=== PATIENT | male | born 1960 | race Caucasian/White ===

== ENCOUNTER 2017-03-30 08:48 | Emergency (ER) | payer MEDICARE, BC ==
[2017-03-30 09:18] VITALS: BP 166/87
[2017-03-30] MEDS ORDERED: cefTRIAXone 2 GM, Lidocaine 1% 4.2 ML IM ONE ×2 (09:35)
--- NOTE | 2017-03-30 09:38 | EDM.PDOC ---
[id number]: CELLUTITS Time Seen by Provider: 03/30/17 09:10 Source of Information: Reports: Patient, RN Notes Reviewed History Limitations: Reports: No Limitations - History of Present Illness INITIAL COMMENTS - FREE TEXT/NARRATIVE: Patient states left medial thigh started turning warm and red night. He had previous episode of cellulitis on right thigh about six months ago treated with oral antibiotics. Onset: Gradual Onset Date: 03/28/17 Onset Time: 22:00 Duration: Day(s):, Getting Worse Location: Reports: Lower Extremity, Left Front/Back Body Image: 1 - red warm swollen with small follicles reddened but no areas of fluctuance noted Quality: Reports: Ache, Same as Previous Episode Severity: Mild Improves with: Reports: None Worsens with: Reports: None Associated Symptoms: Reports: No Other Symptoms. 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 Denies: Fever, Chills, Malaise, Weakness , Fatigue, Diaphoresis, Weight Gain HEENT: Reports: No Symptoms Respiratory: Denies: Shortness of Breath, Wheezing, Pleuritic Chest Pain, Cough , Sputum Cardiovascular: Denies: Chest Pain, Claudication, Dyspnea on Exertion, Edema, Orthopnea, Palpitations, Syncope Endocrine: Reports: No Symptoms GI/Abdominal: Reports: No Symptoms. Denies: Abdominal Pain, Black Stool, Bloody Stool, Constipation, Diarrhea, Distension, Nausea : Reports: No Symptoms. Denies: Dysuria, Frequency, Hematuria Musculoskeletal: Reports: No Symptoms. Denies: Neck Pain, Shoulder Pain, Arm Pain, Back Pain Skin: Reports: No Symptoms, Other (large area of cellulitis and folliculitis on left medial, anterior and lateral thigh, 26 by 21 cm approx. edges marked, no areas of fluctuance or large wounds amenable to drainage) Neurological: Reports: No Symptoms. Denies: Confusion, Dizziness, Headache Psychiatric: Reports: No Symptoms Hematologic/Lymphatic: Reports: No Symptoms. Denies: Easy Bleeding, Easy Bruising Immunologic: Reports: No Symptoms ED EXAM, SKIN/RASH Exam: See Below Exam Limited By: No Limitations General Appearance: Alert, WD/WN, No Apparent Distress Eye Exam: Bilateral Eye: PERRL Ears: Normal External Exam Nose: Normal Inspection Throat/Mouth: Normal Inspection, Normal Oropharynx Head: Atraumatic, Normocephalic Neck: Normal Inspection Respiratory/Chest: No Respiratory Distress, Lungs Clear, Normal Breath Sounds, No Accessory Muscle Use, Chest Non-Tender. No: Respiratory Distress, Crackles, Rales, Rhonchi Cardiovascular: Systolic Murmur, Extra Beats, Other (early systolic murmer with fixed split S2, mostly regular with occasional early beats, appear to be PAC or PVC on monitor) Peripheral Pulses: 1+: Dorsalis Pedis (L), Dorsalis Pedis (R), 3+: Radial (L), Radial (R) GI/Abdominal: Normal Bowel Sounds, Soft, Non-Tender, Other (large abdomen due to obesity). No: No Mass, Guarding, Rebound, Tender (Male) Exam: Deferred Rectal (Males) Exam: Deferred Back Exam: Normal Inspection, Full Range of Motion Extremities: Increased Warmth, Redness, Other (right lower extremity normal exam , left lower extremity has 21 by 26 area of cellulits and folliculitis on medial posterior and anterior thigh, area marked with skin marker). No: [place]' s Sign Neurological: Alert, Oriented, CN II-XII Intact Psychiatric: Normal Affect, Normal Mood Skin: Warm, Dry, Intact, Increased Warmth, Other (see above) Location, Skin: Lower Extremity, Left Characteristics: Macular, Maculopapular, Patchy, Erythematous Associated features: Warmth, Tenderness, Induration, Rough Lymphatic: No Adenopathy Front/Back Body Diagram: 1 - red warm swollen EKG INTERPRETATION EKG Date: 03/30/17 Time: 10:42 Rhythm: NSR (SR with occasional supraventricular beats, rhythm mostly regular with RAD and widespread t wave changes, no previous EKG available to compare this to.) [place]: RAD-Right [place] Deviation P-Wave: Present QRS: RBBB ST-T: Depressed QT: Normal Comparison: NA - No Prior EKG EKG Interpretation Comments: EKG done due to irregular pulse and murmer which patient was unaware of. He has no symptoms of shortness of breath or chest pain at the ER visit. Course - Vital Signs Last Recorded V/S: Last Vital Signs Temp 35.7 C 03/30/17 08:55 Pulse 91 03/30/17 08:55 Resp 20 03/30/17 08:55 BP 166/87 H 03/30/17 08:55 Pulse Ox - Orders/Labs/Meds Orders: Active Orders 24 hr Category Date Time Status EKG 12 Lead [EKG Documentation Completion] [RC] STAT Care 03/30/17 09:33 Active Labs: Laboratory Tests 03/30/17 03/30/17 Range/Units 09:55 09:55 WBC 6.2 (4.0-10.0) x10^3/uL RBC 4.89 (4.5-6.0) x10^6/uL Hgb 16.3 (14.0-18.0) g/dL Hct 44.5 (40.0-52.0) % MCV 91.0 (78.0-93.0) fL MCH 33.3 H (26.0-32.0) pg MCHC 36.6 H (32.0-36.0) g/dL RDW Coeff of Sher 13.8 (10.0-15.0) % Plt Count 100 L (130-400) x10^3/uL Neut % (Auto) 65.6 (50.0-80.0) % Lymph % (Auto) 21.7 L (25.0-50.0) % [place] % (Auto) 10.9 (2.0-11.0) % Eos % (Auto) 1.6 (0.0-4.0) % Baso % (Auto) 0.2 (0.2-1.2) % Sodium 139 (136-145) mmol/L Potassium 4.2 (3.5-5.1) mmol/L Chloride 106 (98-107) mmol/L Carbon Dioxide 26 (21-32) mmol/L BUN 12 (7-18) mg/dL Creatinine 1.0 (0.70-1.30) mg/dL Est Cr Clr Drug Dosing 89.46 mL/min Estimated GFR (MDRD) > 60 Glucose 99 (74-106) mg/dL Calcium 8.3 L (8.5-10.1) mg/dL Corrected Calcium 9.10 (8.5-10.1) mg/dL Total Bilirubin 1.7 H (0.2-1.0) mg/dL AST 29 (15-37) U/L ALT 21 (16-63) U/L Alkaline Phosphatase 102 (46-116) U/L Creatine Kinase 94 (39-308) U/L Creatine Kinase Index 1.3 (0.0-4.0) % CK-MB (CK-2) 1.2 (0.0-3.6) ng/mL Troponin I 0.028 (<=0.056) ng/mL Total Protein 7.2 (6.4-8.2) g/dL Albumin 3.0 L (3.4-5.0) g/dL Globulin 4.2 Albumin/Globulin Ratio 0.71 Meds: Medications Discontinued Medications Generic Name Dose Route Start Last Admin Trade Name Freq PRN Reason Stop Dose Admin Ceftriaxone Sodium 2 gm/ 0 gm 03/30/17 09:35 03/30/17 10:09 Lidocaine HCl 4.2 ml IM 03/30/17 09:36 1 inj ONETIME ONE Administration - Re-Assessments/Exams Free Text/Narrative Re-Assessment/Exam: 03/30/17 11:03 EKG was done due to heart murmur and irregular pulse, not because patient was short of breath or had chest pain. Patient was completely asymptomatic from cardiac standpoint. There was no Previous EKG to compare to on [facility] EMR. I discussed case with and had Dr Flores look in their system and nothing was available for EKG . Labs were done and reviewed to make sure there were no other issues complicating the illness. No other acute issues noted. Patient advised to start Bactrim one twice daily for ten days starting today and if cellulitis not better tomorrow to come back for another dose of Rocephin. Also strongly advised to return to ER at once if he develops chest pain, shortness of breath or abdominal or back pain or nausea and vomiting or any other new symptoms. He is advised to see Dr Quintana for ER follow up on Saturday or Saturday and to reView EKG and heart murmur. Patient voiced understanding. Departure - Departure Time of Disposition: 10:53 Disposition: Home, Self-Care 01 Condition: Good Clinical Impression: Cellulitis Qualifiers: Site of cellulitis: extremity Site of cellulitis of extremity: lower extremity Laterality: left Qualified Code(s): L03.116 - Cellulitis of left lower limb - Discharge Information Instructions: Cellulitis, Adult Referrals: Anabel Quintana MD [Primary Care Provider] - Forms: ED Department Discharge Additional Instructions: If the leg is not improved by tomorrow, or if it goes outside the lines, come back for another dose of antibiotics IM. Take your oral antibiotic as directed. Return to ER at once if you develop fever, rapidly spreading rash, chest pain, shortness of breath, nausea, vomiting or any other new symptoms. Follow up with DR Quintana in clinic on Saturday or Saturday to review your EKG, Listen to your heart and check the rash on your leg. - My Orders Last 24 Hours: My Active Orders 03/30/17 09:33 EKG 12 Lead [EKG Documentation Completion] [RC] STAT - Assessment/Plan Last 24 Hours: My Active Orders 03/30/17 09:33 EKG 12 Lead [EKG Documentation Completion] [RC] STAT
[2017-03-30 10:34] LABS: CHLORIDE,CL 106 mmol/L (98-107); SODIUM,NA 139 mmol/L (136-145)
== END 2017-03-30 11:06 | disposition home or self-care (01) ==
LOC: VM.ED 08:48
DX: L03.116 Cellulitis of left lower limb (principal); Z79.899 Other long term (current) drug therapy
CPT/HCPCS: 36415; 80053; 82550; 82553; 84484; 85025; 93005; 96372; 99283; J0696

== ENCOUNTER 2017-10-19 08:57 | Emergency (ER) | payer MEDICARE, BC ==
--- NOTE | 2017-10-19 09:42 | EDM.PDOC ---
ED HPI GENERAL MEDICAL PROBLEM - General Chief Complaint: Fever Stated Complaint: FLU SYMPTOMS Time Seen by Provider: 10/19/17 09:20 Source of Information: Reports: Patient History Limitations: Reports: No Limitations - History of Present Illness INITIAL COMMENTS - FREE TEXT/NARRATIVE: Patient comes in with a long week history of coughing and low-grade fever sputum production inability to lay flat body aches. Patient states this all started on Saturday and slowly is progressively getting worse. States that he has not had any chest pain and is not short of breath however states that his tufted start taking deep breaths currently. He has become short of breath with exercise. Patient denies any nausea vomiting dizziness lightheadedness Onset: Gradual Quality: Reports: Ache Severity: Moderate Improves with: Reports: Immobilization, Rest - Related Data Allergies Allergy/AdvReac Type Severity Reaction Status Date / Time No Known Allergies Allergy Verified 03/30/17 09:13 Home Meds: Home Meds LORazepam [LORazepam] 0.5 mg PO QID PRN 03/30/17 [History] Lisinopril [Prinivil] 30 mg DAILY 03/30/17 [History] Azithromycin [IMW: Azithromycin] 500 mg PO DAILY 5 Days #5 tab 10/19/17 [Rx] Fluticasone Propionate [Flonase] 1 spray NS BID 10/19/17 [History] Furosemide [Lasix] 40 mg PO DAILY 10/19/17 [History] Loratadine [Claritin] 10 mg PO DAILY PRN 10/19/17 [History] Metoprolol Succinate [Toprol Xl] 12.5 mg PO DAILY 10/19/17 [History] Ranitidine HCl [Zantac] 150 mg PO DAILY 10/19/17 [History] rOPINIRole HCl [Requip] 0.5 mg PO BEDTIME 10/19/17 [History] traMADol HCl [Tramadol HCl] 50 tab PO Q4H PRN 10/19/17 [History] Past Medical History Cardiovascular History: Reports: Hypertension Gastrointestinal History: Reports: Other (See Below) (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) Psychiatric History: Reports: Anxiety Dermatologic History: Reports: Cellulitis - Infectious Disease History Other Infectious Disease History: Leg cellulitis - Past Surgical History Musculoskeletal Surgical History: Reports: Hip Replacement (right hip replacement about 2006 per pt) Social & Family History - Tobacco Use Smoking Status *Q: Never Smoker - Recreational Drug Use Recreational Drug Use: No ED ROS GENERAL - Review of Systems Review Of Systems: See Below Constitutional: Reports: Fever, Chills, Malaise, Fatigue, Night Sweats, Decreased Appetite HEENT: Reports: No Symptoms Respiratory: Reports: Shortness of Breath, Wheezing, Cough, Sputum Cardiovascular: Reports: No Symptoms Endocrine: Reports: No Symptoms GI/Abdominal: Reports: No Symptoms : Reports: No Symptoms Skin: Reports: No Symptoms ED EXAM, GENERAL - Physical Exam Exam: See Below Exam Limited By: No Limitations General Appearance: Alert, WD/WN, No Apparent Distress Respiratory/Chest: Decreased Breath Sounds, Crackles, Wheezing Cardiovascular: Normal Peripheral Pulses GI/Abdominal: Normal Bowel Sounds, Soft, Non-Tender, No Distention, No Abnormal Bruit, No Mass Course - Vital Signs Last Recorded V/S: Last Vital Signs Temp 36.1 C 10/19/17 09:05 Pulse 87 10/19/17 09:05 Resp 22 H 10/19/17 09:05 BP 142/83 H 10/19/17 09:05 Pulse Ox 90 L 10/19/17 09:05 - Orders/Labs/Meds Orders: Active Orders 24 hr Category Date Time Status Chest 2V [CR] Stat Exams 10/19/17 09:26 Taken Labs: Laboratory Tests 10/19/17 10/19/17 Range/Units 09:40 09:40 WBC 6.9 (4.0-10.0) x10^3/uL RBC 5.32 (4.5-6.0) x10^6/uL Hgb 17.6 (14.0-18.0) g/dL Hct 47.3 (40.0-52.0) % MCV 88.9 (78.0-93.0) fL MCH 33.1 H (26.0-32.0) pg MCHC 37.2 H (32.0-36.0) g/dL RDW Coeff of Sher 13.5 (10.0-15.0) % Plt Count 105 L (130-400) x10^3/uL Add Manual Diff Yes Neutrophils % (Manual) 84 H (50-80) % Band Neutrophils % 3 (0-6) % Lymphocytes % (Manual) 11 L (25-50) % Monocytes % (Manual) 2 (2-11) % Platelet Estimate Decreased L Sodium 134 L (136-145) mmol/L Potassium 3.3 L (3.5-5.1) mmol/L Chloride 97 L (98-107) mmol/L Carbon Dioxide 23 (21-32) mmol/L BUN 26 H (7-18) mg/dL Creatinine 1.7 H (0.70-1.30) mg/dL Est Cr Clr Drug Dosing 51.99 mL/min Estimated GFR (MDRD) 42 Glucose 127 H (74-106) mg/dL Calcium 9.1 (8.5-10.1) mg/dL Departure - Departure Time of Disposition: 10:31 Disposition: Home, Self-Care 01 Clinical Impression: Influenza A Pneumonia Qualifiers: Pneumonia type: due to unspecified organism Laterality: left Lung location: lower lobe of lung Qualified Code(s): J18.1 - Lobar pneumonia, unspecified organism - Discharge Information Prescriptions: Azithromycin [IMW: Azithromycin] 500 mg PO DAILY 5 Days #5 tab Instructions: Influenza, Adult, [id number], Pneumonia, , Pneumonia, Child Referrals: Anabel Quintana MD [Primary Care Provider] - Forms: ED Department Discharge Additional Instructions: Increase water intake Take, ibuprofen for any pain or fever Rest Follow up with PCP if not better in 7-10 days. Return to emergency department chest pain shortness of breath or fever increases - My Orders Last 24 Hours: My Active Orders 10/19/17 09:26 Chest 2V [CR] Stat - Assessment/Plan Last 24 Hours: My Active Orders 10/19/17 09:26 Chest 2V [CR] Stat
[2017-10-19 09:47] VITALS: BP 142/83
[2017-10-19] MEDS ORDERED: Lidocaine 1% PF 2 ML SDV INJECT ONE (10:32)
[2017-10-19] MEDS ORDERED: cefTRIAXone 1 GM Vial IM ONE (10:32)
== END 2017-10-19 11:05 | disposition home or self-care (01) ==
LOC: VM.ED 08:57
DX: J10.1 Influenza due to other identified influenza virus with other respiratory manifestations (principal); J18.9 Pneumonia, unspecified organism; I10 Essential (primary) hypertension; Z79.899 Other long term (current) drug therapy
CPT/HCPCS: 36415; 71046; 80048; 85025; 87804; 96372; 99283; J0696; J2001

== ENCOUNTER 2017-10-20 15:46 | Observation (INO) | payer MEDICARE, BC ==
[2017-10-20 16:54] LABS: CHLORIDE,CL 98 mmol/L (98-107); SODIUM,NA 134 mmol/L (136-145)
[2017-10-20] MEDS ORDERED: Sodium Chloride 0.9% 10 ML Syringe FLUSH PRN (16:56)
--- NOTE | 2017-10-20 17:21 | EDM.PDOC ---
ED HPI GENERAL MEDICAL PROBLEM - General Chief Complaint: General Stated Complaint: FLU Time Seen by Provider: 10/20/17 15:48 Source of Information: Reports: Patient, Family, RN, RN Notes Reviewed History Limitations: Reports: No Limitations - History of Present Illness INITIAL COMMENTS - FREE TEXT/NARRATIVE: Patient is brought to emergency room at [facility] with concerns of acute onset of confusion. The patient was seen in this emergency room yesterday for fever, chills, dry cough. The patient was diagnosed with influenza type A and pneumonia. The patient was given a prescription for azithromycin and discharged home. Earlier today, friends stopped by the patient's home to check on him when they noticed the acute confusion. They became very concerned and brought the patient back to the emergency room for further evaluation. Upon interviewing the patient, the patient was not aware where he was at. The patient is able to be somewhat reorientation. The patient was confused with his height and weight. The patient does remember being at the emergency room yesterday. The patient was disoriented to time. The patient seems to be somewhat dazed. The patient denies any chest pain. The patient does have a dry nonproductive cough. The patient denies any shortness of breath. The patient denies any abdominal pain. The patient denies any nausea vomiting or diarrhea. The patient denies any headaches. The patient denies any visual field disturbances. Onset: Today, Sudden - Related Data Allergies Allergy/AdvReac Type Severity Reaction Status Date / Time No Known Allergies Allergy Verified 10/20/17 16:03 Home Meds: Home Meds LORazepam [LORazepam] 0.5 mg PO QID PRN 03/30/17 [History] Lisinopril [Prinivil] 30 mg DAILY 03/30/17 [History] Azithromycin [IMW: Azithromycin] 500 mg PO DAILY 5 Days #5 tab 10/19/17 [Rx] Fluticasone Propionate [Flonase] 1 spray NS BID 10/19/17 [History] Furosemide [Lasix] 40 mg PO DAILY 10/19/17 [History] Loratadine [Claritin] 10 mg PO DAILY PRN 10/19/17 [History] Metoprolol Succinate [Toprol Xl] 12.5 mg PO DAILY 10/19/17 [History] Ranitidine HCl [Zantac] 150 mg PO DAILY 10/19/17 [History] rOPINIRole HCl [Requip] 0.5 mg PO BEDTIME 10/19/17 [History] traMADol HCl [Tramadol HCl] 50 - 100 mg PO Q4H PRN 10/19/17 [History] Past Medical History Cardiovascular History: Reports: Hypertension Gastrointestinal History: Reports: Other (See Below) Psychiatric History: Reports: Anxiety Dermatologic History: Reports: Cellulitis - Infectious Disease History Other Infectious Disease History: Leg cellulitis - Past Surgical History Musculoskeletal Surgical History: Reports: Hip Replacement Social & Family History - Tobacco Use Smoking Status *Q: Unknown Ever Smoked - Recreational Drug Use Recreational Drug Use: No ED ROS GENERAL - Review of Systems Review Of Systems: See Below Constitutional: Denies: Fever, Chills, Weakness HEENT: Reports: No Symptoms Respiratory: Reports: Cough. Denies: Shortness of Breath, Sputum Cardiovascular: Denies: Chest Pain, Palpitations GI/Abdominal: Denies: No Symptoms, Abdominal Pain, Nausea, Vomiting Skin: Reports: No Symptoms Neurological: Reports: Confusion. Denies: Dizziness, Headache ED EXAM, GENERAL - Physical Exam Exam: See Below Exam Limited By: No Limitations General Appearance: Alert, No Apparent Distress, Obese Eye Exam: Bilateral Eye: Normal Inspection, PERRL Head: Atraumatic, Normocephalic Neck: Supple Respiratory/Chest: No Respiratory Distress, Chest Non-Tender, Rhonchi ( scattered throughout) Cardiovascular: Tachycardia Peripheral Pulses: 2+: Radial (L), Radial (R) GI/Abdominal: Normal Bowel Sounds, Soft, Non-Tender Neurological: Alert, Confused, Disoriented Skin Exam: Warm, Dry, Intact, Normal Color, No Rash Course - Vital Signs Last Recorded V/S: Last Vital Signs Temp 36.4 C 10/20/17 15:46 Pulse 116 H 10/20/17 15:46 Resp 24 H 10/20/17 15:46 BP 154/101 H 10/20/17 15:46 Pulse Ox 98 10/20/17 15:46 - Orders/Labs/Meds Orders: Active Orders 24 hr Category Date Time Status Chest w Cont [CT] Stat Exams 10/20/17 17:16 Ordered Head wo Cont [CT] Stat Exams 10/20/17 17:11 Ordered Sodium Chloride 0.9% [Saline Flush] Med 10/20/17 16:56 Active 10 ml FLUSH ASDIRECTED PRN Saline Lock Insert [OM.PC] Routine Oth 10/20/17 16:56 Ordered Medication Orders Sodium Chloride (Saline Flush) 10 ml FLUSH ASDIRECTED PRN PRN Reason: Keep Vein Open Labs: Laboratory Tests 10/20/17 10/20/17 Range/Units 16:30 16:30 WBC 6.8 (4.0-10.0) x10^3/uL RBC 5.36 (4.5-6.0) x10^6/uL Hgb 17.8 (14.0-18.0) g/dL Hct 47.5 (40.0-52.0) % MCV 88.6 (78.0-93.0) fL MCH 33.2 H (26.0-32.0) pg MCHC 37.5 H (32.0-36.0) g/dL RDW Coeff of Sher 13.5 (10.0-15.0) % Plt Count 131 (130-400) x10^3/uL Neut % (Auto) 65.6 (50.0-80.0) % Lymph % (Auto) 16.6 L (25.0-50.0) % [place] % (Auto) 17.6 H (2.0-11.0) % Eos % (Auto) 0.1 (0.0-4.0) % Baso % (Auto) 0.1 L (0.2-1.2) % Sodium 134 L (136-145) mmol/L Potassium 3.2 L (3.5-5.1) mmol/L Chloride 98 (98-107) mmol/L Carbon Dioxide 19 L (21-32) mmol/L BUN 43 H (7-18) mg/dL Creatinine 1.6 H (0.70-1.30) mg/dL Est Cr Clr Drug Dosing TNP Estimated GFR (MDRD) 45 Glucose 118 H (74-106) mg/dL Calcium 9.2 (8.5-10.1) mg/dL Magnesium 1.8 (1.8-2.4) mg/dL Meds: Medications Generic Name Dose Route Start Last Admin Trade Name Freq PRN Reason Stop Dose Admin Sodium Chloride 10 ml 10/20/17 16:56 Saline Flush FLUSH ASDIRECTED PRN Keep Vein Open Departure - Departure Time of Disposition: 17:31 Disposition: Refer to Observation Condition: Good Clinical Impression: Acute confusion, Dehydration, Influenza A - Discharge Information - Problem List & Annotations (1) Influenza A SNOMED Code(s): 368394651 Code(s): J10.1 - FLU DUE TO OTH IDENT INFLUENZA VIRUS W OTH RESP MANIFEST Status: Acute Priority: Medium Current Visit: Yes Onset Date: ~10/19/17 (2) Acute confusion SNOMED Code(s): 757985967 Code(s): R41.0 - DISORIENTATION, UNSPECIFIED Status: Acute Priority: Medium Current Visit: Yes Onset Date: ~10/20/17 (3) Dehydration SNOMED Code(s): 73436612 Code(s): E86.0 - DEHYDRATION Status: Acute Priority: Medium Current Visit: Yes Onset Date: ~10/19/17 (4) Acute kidney injury (nontraumatic) SNOMED Code(s): 95104136 Code(s): N17.9 - ACUTE KIDNEY FAILURE, UNSPECIFIED Status: Acute Priority : Medium Current Visit: Yes Onset Date: ~10/20/17 - Problem List Review Problem List Initiated/Reviewed/Updated: Yes - My Orders Last 24 Hours: My Active Orders 10/20/17 16:56 Sodium Chloride 0.9% [Saline Flush] 10 ml FLUSH ASDIRECTED PRN Saline Lock Insert [OM.PC] Routine 10/20/17 17:11 Head wo Cont [CT] Stat 10/20/17 17:16 Chest w Cont [CT] Stat - Assessment/Plan Admission H&P: Please use this note as an admission H&P Last 24 Hours: My Active Orders 10/20/17 16:56 Sodium Chloride 0.9% [Saline Flush] 10 ml FLUSH ASDIRECTED PRN Saline Lock Insert [OM.PC] Routine 10/20/17 17:11 Head wo Cont [CT] Stat 10/20/17 17:16 Chest w Cont [CT] Stat Plan: Given the acute onset of confusion, will admit patient to observation.
[2017-10-20] MEDS ORDERED: Iopamidol 612 MG/ML 100 ML Bottle IVPUSH ONE (18:02)
[2017-10-20] MEDS ORDERED: Ondansetron 4 MG Tab.DIS PO PRN (18:19)
[2017-10-20] MEDS ORDERED: Acetaminophen 325 MG Tab PO PRN (18:19)
[2017-10-20] MEDS: Lactated Ringers 1,000 ML IV SCH (18:50)
[2017-10-20] MEDS: Oseltamivir 75 MG Cap PO SCH (19:53)
[2017-10-21] MEDS ORDERED: LORazepam 0.5 MG Tab PO PRN (00:27)
[2017-10-21] MEDS ORDERED: traMADol 50 MG Tab PO PRN (00:27)
[2017-10-21] MEDS ORDERED: Loratadine 10 MG Tab PO PRN (00:27)
[2017-10-21] MEDS ORDERED: rOPINIRole 0.5 MG Tab PO SCH (00:30)
--- NOTE | 2017-10-21 01:13 | PCM.HP ---
H&P History of Present Illness - General Date of Service: 10/20/17 Admit Problem/Dx: Admission Diagnosis/Problem Admission Diagnosis/Problem Acute confusion Influenza Type A Acute Kidney Injury Dehydration Source of Information: Patient, Old Records, RN, RN Notes Reviewed History Limitations: Reports: No Limitations - History of Present Illness Initial Comments - Free Text/Narative: Patient was brought to emergency room at [facility] earlier this evening with concerns of acute onset of confusion. The patient was seen in this emergency room yesterday for fever, chills, dry cough. The patient was diagnosed with influenza type A and pneumonia. The patient was given a prescription for azithromycin and discharged home. Earlier today, friends stopped by the patient's home to check on him when they noticed the acute confusion. They became very concerned and brought the patient back to the emergency room for further evaluation. Upon interviewing the patient, the patient was not aware where he was at. The patient was able to be somewhat reorientation. The patient was confused with his height and weight. The patient does remember being at the emergency room yesterday. The patient was disoriented to time. The patient seemed to be somewhat dazed. The patient denies any chest pain. The patient does have a dry nonproductive cough. The patient denies any shortness of breath. The patient denies any abdominal pain. The patient denies any nausea vomiting or diarrhea. The patient denies any headaches. The patient denies any visual field disturbances. Onset of Symptoms: Reports: Gradual - Related Data Allergies/Adverse Reactions: Allergies Allergy/AdvReac Type Severity Reaction Status Date / Time No Known Allergies Allergy Verified 10/20/17 16:03 Home Medications: Home Meds LORazepam [LORazepam] 0.5 mg PO QID PRN 03/30/17 [History] Lisinopril [Prinivil] 30 mg DAILY 03/30/17 [History] Azithromycin [IMW: Azithromycin] 500 mg PO DAILY 5 Days #5 tab 10/19/17 [Rx] Fluticasone Propionate [Flonase] 1 spray NS BID 10/19/17 [History] Furosemide [Lasix] 40 mg PO DAILY 10/19/17 [History] Loratadine [Claritin] 10 mg PO DAILY PRN 10/19/17 [History] Metoprolol Succinate [Toprol Xl] 12.5 mg PO DAILY 10/19/17 [History] Ranitidine HCl [Zantac] 150 mg PO DAILY 10/19/17 [History] rOPINIRole HCl [Requip] 0.5 mg PO BEDTIME 10/19/17 [History] traMADol HCl [Tramadol HCl] 50 - 100 mg PO Q4H PRN 10/19/17 [History] Past Medical History Cardiovascular History: Reports: Hypertension, Pulmonary Hypertension Respiratory History: Reports: Sleep Apnea Gastrointestinal History: Reports: Cirrhosis Other Gastrointestinal History: Portal Hypertension Musculoskeletal History: Reports: Osteoarthritis Psychiatric History: Reports: Anxiety Dermatologic History: Reports: Cellulitis - Infectious Disease History Other Infectious Disease History: Leg cellulitis - Past Surgical History Musculoskeletal Surgical History: Reports: Hip Replacement Social & Family History - Family History Family Medical History: Noncontributory - Tobacco Use Smoking Status *Q: Never Smoker Tobacco Use Within Last Twelve Months: No Second Hand Smoke Exposure: No - Caffeine Use Caffeine Use: Reports: Coffee - Alcohol Use Alcohol Use History: Yes Alcohol Use in Last Twelve Months: No - Recreational Drug Use Recreational Drug Use: No H&P Review of Systems - Review of Systems: Review Of Systems: See Below General: Denies: Fever, Chills Pulmonary: Reports: Wheezing, Cough, Sputum. Denies: Shortness of Breath Cardiovascular: Denies: Chest Pain, Palpitations Gastrointestinal: Denies: Abdominal Pain, Nausea, Vomiting Skin: Reports: No Symptoms Psychiatric: Reports: Confusion Neurological: Reports: Confusion. Denies: Dizziness, Headache Exam - Exam Exam: See Below - Vital Signs Vital Signs: Last Vital Signs Temp 36.9 C 10/20/17 21:56 Pulse 113 H 10/20/17 21:56 Resp 20 10/20/17 21:56 BP 155/92 H 10/20/17 21:56 Pulse Ox 96 10/20/17 21:56 Weight: 127.187 kg - Exam Quality Assessment: Skin Breakdown General: Alert, Cooperative HEENT: Conjunctiva Clear, Other (Dry mucous membranes) Lungs: Normal Respiratory Effort, Decreased Breath Sounds, Wheezing Cardiovascular: Regular Rate, Regular Rhythm, Normal S1, Normal S2 GI/Abdominal Exam: Soft, Non-Tender, Abnormal Bowel Sounds (Hypoactive) Peripheral Pulses: 2+: Radial (L), Radial (R) Skin: Warm, Dry, Wound (macerated skin along the left groin fold) Neuro Extensive - Mental Status: Alert, Disorientation to Time - Patient Data Lab Results Last 24 hrs: Laboratory Results - last 24 hr 10/20/17 Range/Units 19:50 Lactic Acid 2.5 H* (0.4-2.0) mmol/L Result Diagrams: 10/20/17 16:30 10/20/17 16:30 *Q Meaningful Use (ADM) - VTE *Q VTE Criteria *Q: VTE Mechanical Contraindications *Q: At Risk for Falls - Stroke *Q Stroke Criteria *Q: - AMI *Q AMI Criteria *Q: - Problem List (1) Influenza A SNOMED Code(s): 229125968 ICD Code: J10.1 - FLU DUE TO OTH IDENT INFLUENZA VIRUS W OTH RESP MANIFEST Status: Acute Priority: Medium Current Visit: Yes Onset Date: ~10/19/17 (2) Acute confusion SNOMED Code(s): 895571373 ICD Code: R41.0 - DISORIENTATION, UNSPECIFIED Status: Acute Priority: Medium Current Visit: Yes Onset Date: ~10/20/17 (3) Dehydration SNOMED Code(s): 20010943 ICD Code: E86.0 - DEHYDRATION Status: Acute Priority: Medium Current Visit: Yes Onset Date: ~10/19/17 (4) Acute kidney injury (nontraumatic) SNOMED Code(s): 86849581 ICD Code: N17.9 - ACUTE KIDNEY FAILURE, UNSPECIFIED Status: Acute Priority: Medium Current Visit: Yes Onset Date: ~10/20/17 (5) Pulmonary hypertension SNOMED Code(s): 01487816 ICD Code: I27.20 - PULMONARY HYPERTENSION, UNSPECIFIED Status: Chronic Priority: Medium Current Visit: No (6) Essential hypertension SNOMED Code(s): 23726864 ICD Code: I10 - ESSENTIAL (PRIMARY) HYPERTENSION Status: Chronic Priority : Low Current Visit: No (7) Portal hypertension SNOMED Code(s): 83193757 ICD Code: K76.6 - PORTAL HYPERTENSION Status: Chronic Priority: Low Current Visit: No (8) Morbid obesity due to excess calories SNOMED Code(s): 242933397 ICD Code: E66.01 - MORBID (SEVERE) OBESITY DUE TO EXCESS CALORIES Status: Chronic Current Visit: No (9) Mild obstructive sleep apnea SNOMED Code(s): 88451399 ICD Code: G47.33 - OBSTRUCTIVE SLEEP APNEA (ADULT) (PEDIATRIC) Status: Chronic Priority: Medium Current Visit: No (10) Alcoholic cirrhosis of liver without ascites SNOMED Code(s): 482027052 ICD Code: K70.30 - ALCOHOLIC CIRRHOSIS OF LIVER WITHOUT ASCITES Status: Chronic Priority: Medium Current Visit: No Problem List Initiated/Reviewed/Updated: Yes Orders Last 24hrs: Active Orders 24 hr Category Date Time Status Patient Status [ADT] Routine ADT 10/20/17 18:19 Active Ambulate [RC] ASDIRECTED Care 10/20/17 18:19 Active Antiembolic Devices [RC] 08,20 Care 10/20/17 18:21 Active Height and Weight [RC] UPON Care 10/20/17 18:19 Active Intake and Output [RC] 06,18 Care 10/20/17 18:20 Active May Shower [RC] ASDIRECTED Care 10/20/17 18:19 Active Oxygen Therapy [RC] 08,20 Care 10/20/17 18:19 Active VTE/DVT Education [RC] .PRN Care 10/20/17 18:19 Active Vital Signs [RC] 06,10,14,18,22,02 Care 10/20/17 18:19 Active Consult to Case Management [CONS] Routine Cons 10/20/17 18:19 Active OT Evaluation and Treatment [CONS] Routine Cons 10/20/17 18:19 Active PT Evaluation and Treatment [CONS] Routine Cons 10/20/17 18:19 Active 2 Gram Sodium Diet [DIET] Diet 10/20/17 Breakfast Active BASIC METABOLIC PANEL,BMP [CHEM] Routine Lab 10/21/17 05:11 Ordered CBC WITH AUTO DIFF [HEME] Routine Lab 10/21/17 05:11 Ordered CULTURE BLOOD [BC] Stat Lab 10/20/17 19:45 Received CULTURE BLOOD [BC] Stat Lab 10/20/17 19:50 Received LACTIC ACID [CHEM] Routine Lab 10/21/17 05:11 Ordered UA W/MICROSCOPIC [URIN] Routine Lab 10/20/17 22:00 Ordered Acetaminophen [Tylenol] Med 10/20/17 18:19 Active 650 mg PO Q4H PRN Fluticasone Propionate [Flonase] Med 10/21/17 08:00 Ordered 1 spray NS BID Furosemide [Lasix] Med 10/21/17 08:00 Ordered 40 mg PO DAILY LORazepam [LORazepam] Med 10/21/17 00:27 Ordered 0.5 mg PO QID PRN Lactated Ringers [Ringers, Lactated] 1,000 ml Med 10/20/17 18:30 Active IV ASDIRECTED Lisinopril [Prinivil] Med 10/21/17 08:00 Ordered 30 mg PO DAILY Loratadine [Claritin] Med 10/21/17 00:27 Ordered 10 mg PO DAILY PRN Metoprolol Succinate [Toprol Xl] Med 10/21/17 08:00 Ordered 12.5 mg PO DAILY Nystatin [Nystatin Crm] Med 10/21/17 08:00 Ordered 1 gm TOP BID Ondansetron [Zofran ODT] Med 10/20/17 18:19 Active 4 mg PO Q6H PRN Oseltamivir [Tamiflu] Med 10/20/17 20:00 Active 75 mg PO BID Ranitidine HCl [Zantac] Med 10/21/17 08:00 Ordered 150 mg PO DAILY rOPINIRole HCl [Requip] Med 10/21/17 00:30 Ordered 0.5 mg PO BEDTIME traMADol HCl [Tramadol HCl] Med 10/21/17 00:27 Ordered 50 - 100 mg PO Q4H PRN Antiembolic Hose [OM.PC] Per Unit Routine Oth 10/20/17 18:20 Ordered Blood Culture x2 Reflex Set [OM.PC] Stat Oth 10/20/17 19:12 Ordered Resuscitation Status Routine Resus Stat 10/20/17 18:19 Ordered Medication Orders Acetaminophen (Tylenol) 650 mg PO Q4H PRN PRN Reason: Pain (Mild 1-3)/fever Lactated Ringer's (Ringers, Lactated) 1,000 mls @ 100 mls/hr IV ASDIRECTED [facility] Last Admin: 10/20/17 18:50 Dose: 100 mls/hr Non-Formulary Medication (Fluticasone Propionate [Flonase]) 1 spray NS BID [facility] Non-Formulary Medication (Furosemide [Lasix]) 40 mg PO DAILY [facility] Non-Formulary Medication (Lisinopril [Prinivil]) 30 mg PO DAILY [facility] Non-Formulary Medication (Loratadine [Claritin]) 10 mg PO DAILY PRN PRN Reason: Allergies Non-Formulary Medication (Lorazepam [Lorazepam]) 0.5 mg PO QID PRN PRN Reason: Anxiety Non-Formulary Medication (Metoprolol Succinate [Toprol Xl]) 12.5 mg PO DAILY [facility] Non-Formulary Medication (Ranitidine Hcl [Zantac]) 150 mg PO DAILY [facility] Non-Formulary Medication (Ropinirole Hcl [Requip]) 0.5 mg PO BEDTIME [facility] Non-Formulary Medication (Tramadol Hcl [Tramadol Hcl]) 50 - 100 mg PO Q4H PRN PRN Reason: Pain Nystatin (Nystatin Crm) 1 gm TOP BID [facility] Ondansetron HCl (Zofran Odt) 4 mg PO Q6H PRN PRN Reason: nausea, able to take PO Oseltamivir Phosphate (Tamiflu) 75 mg PO BID [facility] Last Admin: 10/20/17 19:53 Dose: 75 mg Sodium Chloride (Saline Flush) 10 ml FLUSH ASDIRECTED PRN PRN Reason: Keep Vein Open Assessment/Plan Comment:: 57-year-old male patient with a past medical history of hypertension, pulmonary hypertension, valvular heart disease, morbid obesity, alcoholic cirrhosis, sleep apnea is admitted to the observation unit at [facility] with a diagnosis of Influenza type A, dehydration, acute kidney injury secondary to dehydration, and acute confusion. A CT scan of the patient's head was normal. It is possible that the acute confusion could be from a elevated BUN and creatinine causing uremia. It is also quite possible the acute confusion could be from the Zithromax as the patient started having confusion after starting that medication. CT scan of the chest with contrast did not show any pneumonia, therefore I will discontinue the Zithromax. If the patient's urinalysis shows infection and lactic acid is still elevated, antibiotics will be restarted. The patient does have some cardiomegaly with pulmonary vascular congestion secondary to his pulmonary hypertension. We will gently rehydrate the patient with IV fluids. I will start the patient on Tamiflu for the Influenza type A and also his comorbid conditions. I will start the patient on nystatin powder for the macerated skin around the left groin. We will recheck a hepatic panel given his history of alcoholic cirrhosis. If his liver enzymes are significantly elevated this may also be contributing to his acute confusion. A UA has not been completed as the patient was not able to give a sample, so hopefully with rehydration we will be able to check a urinalysis tomorrow morning with his blood work. No DVT prophylaxis is warranted as the patient is ambulating. The patient is a full code 1. The patient does wish to be transferred to a higher level of care should the need arise. We will continue home medications without any changes. The patient does have some audible wheezing therefore I'll also start dual nebs lungs sounds were without crackles therefore I do not feel the patient is in any acute heart failure. Will recheck a BNP in the morning just to make sure.
[2017-10-21] MEDS: Albuterol/Ipratropium 3.0-0.5 MG/3 ML Neb Soln NEB SCH ×3 (03:38→11:08)
[2017-10-21] MEDS: Lactated Ringers 1,000 ML IV SCH (05:12)
[2017-10-21 07:56] LABS: CHLORIDE,CL 102 mmol/L (98-107); SODIUM,NA 137 mmol/L (136-145)
[2017-10-21] MEDS ORDERED: Nystatin Crm 30 GM Tube TOP SCH (08:00)
[2017-10-21] MEDS ORDERED: Fluticasone Propionate Nasal Spray 16 GM Bottle NAS SCH (08:00)
[2017-10-21] MEDS ORDERED: Lisinopril 10 MG Tab PO SCH (08:00)
[2017-10-21] MEDS ORDERED: Furosemide 40 MG Tab PO SCH (08:00)
[2017-10-21] MEDS ORDERED: Metoprolol Succinate 25 MG Tab.ER PO SCH (08:00)
[2017-10-21] MEDS ORDERED: Famotidine 20 MG Tab PO SCH (08:00)
[2017-10-21] MEDS: Oseltamivir 75 MG Cap PO SCH (08:07)
[2017-10-21 10:17] VITALS: BP 139/54
--- NOTE | 2017-10-21 10:45 | PCM.DCSUM1 ---
Discharge Summary - Hospital Course HPI Initial Comments: Patient was brought to emergency room at [facility] earlier this evening with concerns of acute onset of confusion. The patient was seen in this emergency room yesterday for fever, chills, dry cough. The patient was diagnosed with influenza type A and pneumonia. The patient was given a prescription for azithromycin and discharged home. Earlier today, friends stopped by the patient's home to check on him when they noticed the acute confusion. They became very concerned and brought the patient back to the emergency room for further evaluation. Upon interviewing the patient, the patient was not aware where he was at. The patient was able to be somewhat reorientation. The patient was confused with his height and weight. The patient does remember being at the emergency room yesterday. The patient was disoriented to time. The patient seemed to be somewhat dazed. The patient denies any chest pain. The patient does have a dry nonproductive cough. The patient denies any shortness of breath. The patient denies any abdominal pain. The patient denies any nausea vomiting or diarrhea. The patient denies any headaches. The patient denies any visual field disturbances. - Discharge Data Discharge Date: 10/21/17 Discharge Disposition: DC/Tfer to Acute Hospital 02 Condition: Good - Discharge Diagnosis/Problem(s) (1) Influenza A SNOMED Code(s): 476739076 ICD Code: J10.1 - FLU DUE TO OTH IDENT INFLUENZA VIRUS W OTH RESP MANIFEST Status: Acute Priority: Medium Current Visit: Yes Onset Date: ~10/19/17 (2) Acute confusion SNOMED Code(s): 951131992 ICD Code: R41.0 - DISORIENTATION, UNSPECIFIED Status: Acute Priority: Medium Current Visit: Yes Onset Date: ~10/20/17 (3) Dehydration SNOMED Code(s): 21715799 ICD Code: E86.0 - DEHYDRATION Status: Acute Priority: Medium Current Visit: Yes Onset Date: ~10/19/17 (4) Acute kidney injury (nontraumatic) SNOMED Code(s): 40521701 ICD Code: N17.9 - ACUTE KIDNEY FAILURE, UNSPECIFIED Status: Acute Priority: Medium Current Visit: Yes Onset Date: ~10/20/17 (5) Pulmonary hypertension SNOMED Code(s): 41481411 ICD Code: I27.20 - PULMONARY HYPERTENSION, UNSPECIFIED Status: Chronic Priority: Medium Current Visit: No (6) Essential hypertension SNOMED Code(s): 21326831 ICD Code: I10 - ESSENTIAL (PRIMARY) HYPERTENSION Status: Chronic Priority : Low Current Visit: No (7) Portal hypertension SNOMED Code(s): 98436867 ICD Code: K76.6 - PORTAL HYPERTENSION Status: Chronic Priority: Low Current Visit: No (8) Morbid obesity due to excess calories SNOMED Code(s): 837608909 ICD Code: E66.01 - MORBID (SEVERE) OBESITY DUE TO EXCESS CALORIES Status: Chronic Current Visit: No (9) Mild obstructive sleep apnea SNOMED Code(s): 22904629 ICD Code: G47.33 - OBSTRUCTIVE SLEEP APNEA (ADULT) (PEDIATRIC) Status: Chronic Priority: Medium Current Visit: No (10) Alcoholic cirrhosis of liver without ascites SNOMED Code(s): 123137225 ICD Code: K70.30 - ALCOHOLIC CIRRHOSIS OF LIVER WITHOUT ASCITES Status: Chronic Priority: Medium Current Visit: No - Patient Summary/Data Operative Procedure(s) Performed: None Consults: Consultations 10/20/17 18:19 Consult to Case Management [CONS] Routine OT Evaluation and Treatment [CONS] Routine PT Evaluation and Treatment [CONS] Routine Labs Pending at D/C: None Planned Operative Procedure(s) after DC: None Hospital Course: Overall, the patient did okay during his short hospital stay. The patient continues to exhibit acute confusion. The patient did not know his age, president, or year. The patient remained hemodynamically stable and afebrile. The patient tolerated IV fluids without any issues. The patient's uremia seem to be improving. No issues with the patient being on Tamiflu. No trouble with BMs or urination. - Patient Instructions Diet: Usual Diet as Tolerated, No Alcoholic Beverages Activity: Rest and Relax Today Driving: Do Not Drive Showering/Bathing: May Shower Notify Provider of: Fever, Increased Pain, Nausea and/or Vomiting - Discharge Plan Home Medications: Home Meds LORazepam 0.5 mg PO QID PRN 03/30/17 [History] Lisinopril [Prinivil] 30 mg DAILY 03/30/17 [History] Fluticasone Propionate [Flonase] 1 spray NS BID 10/19/17 [History] Furosemide [Lasix] 40 mg PO DAILY 10/19/17 [History] Loratadine [Claritin] 10 mg PO DAILY PRN 10/19/17 [History] Metoprolol Succinate [Toprol Xl] 12.5 mg PO DAILY 10/19/17 [History] Ranitidine HCl [Zantac] 150 mg PO DAILY 10/19/17 [History] rOPINIRole HCl [Requip] 0.5 mg PO BEDTIME 10/19/17 [History] traMADol HCl [Tramadol HCl] 50 - 100 mg PO Q4H PRN 10/19/17 [History] Nystatin [Nystatin Crm] 0 gm TOP BID tube 10/21/17 [Rx] Oseltamivir Phosphate [IJD: Tamiflu] 75 mg PO BID capsule 10/21/17 [Rx] Forms: Interfacility Transfer EMTALA - Discharge Summary/Plan Comment DC Time >30 min.: Yes Discharge Summary/Plan Comment: The patient will be transferred to [facility] in [place] for further workup and evaluation for his acute confusion. Report was given to Dr. Valdivia, internal medicine accepting provider. QUESTIONS answered. No additional orders received. The patient will be transferred to [place] via ground BLS. The transfer was discussed with the patient who agreed for further workup and care at [facility]. - General Info Date of Service: 10/21/17 Admission Dx/Problem (Free Text: Admission Diagnosis/Problem Admission Diagnosis/Problem Acute confusion Influenza Type A Acute Kidney Injury Dehydration Subjective Update: Patient offers no specific complaints this morning. He states he feels good. He is not aware of his confusion. Functional Status: Reports: Pain Controlled, Tolerating Diet, Urinating Numeric/FACES Score: 0 - Review of Systems General: Denies: Fever, Weakness Pulmonary: Denies: Shortness of Breath, Sputum Cardiovascular: Denies: Chest Pain, Palpitations Gastrointestinal: Denies: Abdominal Pain, Nausea, Vomiting Skin: Reports: Rash (left groin) Neurological: Reports: No Symptoms - Patient Data Vitals - Most Recent: Last Vital Signs Temp 36.8 C 10/21/17 10:00 Pulse 81 10/21/17 10:00 Resp 20 10/21/17 10:00 BP 139/54 L 10/21/17 10:00 Pulse Ox 97 10/21/17 10:00 Weight - Most Recent: 127.187 kg I&O - Last 24 hours: Intake & Output 10/20/17 10/21/17 10/21/17 22:59 06:59 14:59 Intake Total 720 240 Output Total 150 300 175 Balance -150 420 65 Lab Results - Last 24 hrs: Laboratory Results - last 24 hr 10/20/17 10/20/17 10/20/17 Range/Units 19:50 22:00 22:00 WBC (4.0-10.0) x10^3/uL RBC (4.5-6.0) x10^6/uL Hgb (14.0-18.0) g/dL Hct (40.0-52.0) % MCV (78.0-93.0) fL MCH (26.0-32.0) pg MCHC (32.0-36.0) g/dL RDW Coeff of Sher (10.0-15.0) % Plt Count (130-400) x10^3/uL Add Manual Diff Neutrophils % (Manual) (50-80) % Lymphocytes % (Manual) (25-50) % Atypical Lymphs % (0) % Monocytes % (Manual) (2-11) % Eosinophils % (Manual) (0-4) % Smudge Cells Platelet Estimate Poikilocytosis Cm Cells Sodium (136-145) mmol/L Potassium (3.5-5.1) mmol/L Chloride (98-107) mmol/L Carbon Dioxide (21-32) mmol/L BUN (7-18) mg/dL Creatinine (0.70-1.30) mg/dL Est Cr Clr Drug Dosing mL/min Estimated GFR (MDRD) Glucose (74-106) mg/dL Lactic Acid 2.5 H* (0.4-2.0) mmol/L Calcium (8.5-10.1) mg/dL Total Bilirubin (0.2-1.0) mg/dL Direct Bilirubin (0.00-0.20) mg/dL AST (15-37) U/L ALT (16-63) U/L Alkaline Phosphatase (46-116) U/L NT-Pro-B Natriuret Pep (<=125) pg/mL Total Protein (6.4-8.2) g/dL Albumin (3.4-5.0) g/dL Globulin Albumin/Globulin Ratio Urine Color Dark yellow H (YELLOW) Urine Appearance Clear (CLEAR) Urine pH 6.5 (5.0-8.0) Ur Specific [place] 1.010 Urine Protein Trace H (NEGATIVE) mg/dL Urine Glucose (UA) Negative (NEGATIVE) mg/dL Urine Ketones 15 H (NEGATIVE) mg/dL Urine Occult Blood Small H (NEGATIVE) Urine Nitrite Negative (NEGATIVE) Urine Bilirubin Small H (NEGATIVE) Urine Urobilinogen 1.0 (0.2) EU/dL Ur Leukocyte Esterase Negative (NEGATIVE) Urine RBC 0-5 (NOT SEEN) /HPF Urine WBC 0-5 (NOT SEEN) /HPF Ur Squamous Epith Cells Rare (NEGATIVE) /HPF Ur Renal Epithelial Cell Rare H (NEGATIVE) /HPF Urine Bacteria Not seen (NEGATIVE) /HPF Urine Mucus Not seen (NEGATIVE) /LPF Urine Opiates Screen Negative (NEAGTIVE) Ur Buprenorphine Scrn Negative (NEGATIVE) Ur Oxycodone Screen Negative (NEGATIVE) Urine Methadone Screen Negative (NEGATIVE) Ur Barbiturates Screen Negative (NEGATIVE) Ur Tricyclics Screen Negative (NEGATIVE) Ur Amphetamine Screen Negative (NEGATIVE) U Methamphetamines Scrn Negative (NEGATIVE) Urine MDMA Screen Negative (NEGATIVE) U Benzodiazepines Scrn Negative (NEGATIVE) U Cocaine Metab Screen Negative (NEGATIVE) U Marijuana (THC) Screen Negative (NEGATIVE) 10/21/17 10/21/17 10/21/17 Range/Units 07:22 07:22 07:22 WBC 6.2 (4.0-10.0) x10^3/uL RBC 5.02 (4.5-6.0) x10^6/uL Hgb 17.0 (14.0-18.0) g/dL Hct 44.9 (40.0-52.0) % MCV 89.4 (78.0-93.0) fL MCH 33.9 H (26.0-32.0) pg MCHC 37.9 H (32.0-36.0) g/dL RDW Coeff of Sher 13.6 (10.0-15.0) % Plt Count 108 L (130-400) x10^3/uL Add Manual Diff Yes Neutrophils % (Manual) 57 (50-80) % Lymphocytes % (Manual) 22 L (25-50) % Atypical Lymphs % 11 H (0) % Monocytes % (Manual) 9 (2-11) % Eosinophils % (Manual) 1 (0-4) % Smudge Cells Few H Platelet Estimate Decreased L Poikilocytosis 1+ slight H Cm Cells 1+ slight H Sodium 137 (136-145) mmol/L Potassium 3.2 L (3.5-5.1) mmol/L Chloride 102 (98-107) mmol/L Carbon Dioxide 25 (21-32) mmol/L BUN 35 H (7-18) mg/dL Creatinine 1.1 (0.70-1.30) mg/dL Est Cr Clr Drug Dosing 94.63 mL/min Estimated GFR (MDRD) > 60 Glucose 90 (74-106) mg/dL Lactic Acid 1.7 (0.4-2.0) mmol/L Calcium 8.7 (8.5-10.1) mg/dL Total Bilirubin (0.2-1.0) mg/dL Direct Bilirubin (0.00-0.20) mg/dL AST (15-37) U/L ALT (16-63) U/L Alkaline Phosphatase (46-116) U/L NT-Pro-B Natriuret Pep 1302 H (<=125) pg/mL Total Protein (6.4-8.2) g/dL Albumin (3.4-5.0) g/dL Globulin Albumin/Globulin Ratio Urine Color (YELLOW) Urine Appearance (CLEAR) Urine pH (5.0-8.0) Ur Specific [place] Urine Protein (NEGATIVE) mg/dL Urine Glucose (UA) (NEGATIVE) mg/dL Urine Ketones (NEGATIVE) mg/dL Urine Occult Blood (NEGATIVE) Urine Nitrite (NEGATIVE) Urine Bilirubin (NEGATIVE) Urine Urobilinogen (0.2) EU/dL Ur Leukocyte Esterase (NEGATIVE) Urine RBC (NOT SEEN) /HPF Urine WBC (NOT SEEN) /HPF Ur Squamous Epith Cells (NEGATIVE) /HPF Ur Renal Epithelial Cell (NEGATIVE) /HPF Urine Bacteria (NEGATIVE) /HPF Urine Mucus (NEGATIVE) /LPF Urine Opiates Screen (NEAGTIVE) Ur Buprenorphine Scrn (NEGATIVE) Ur Oxycodone Screen (NEGATIVE) Urine Methadone Screen (NEGATIVE) Ur Barbiturates Screen (NEGATIVE) Ur Tricyclics Screen (NEGATIVE) Ur Amphetamine Screen (NEGATIVE) U Methamphetamines Scrn (NEGATIVE) Urine MDMA Screen (NEGATIVE) U Benzodiazepines Scrn (NEGATIVE) U Cocaine Metab Screen (NEGATIVE) U Marijuana (THC) Screen (NEGATIVE) 10/21/17 Range/Units 07:22 WBC (4.0-10.0) x10^3/uL RBC (4.5-6.0) x10^6/uL Hgb (14.0-18.0) g/dL Hct (40.0-52.0) % MCV (78.0-93.0) fL MCH (26.0-32.0) pg MCHC (32.0-36.0) g/dL RDW Coeff of Sher (10.0-15.0) % Plt Count (130-400) x10^3/uL Add Manual Diff Neutrophils % (Manual) (50-80) % Lymphocytes % (Manual) (25-50) % Atypical Lymphs % (0) % Monocytes % (Manual) (2-11) % Eosinophils % (Manual) (0-4) % Smudge Cells Platelet Estimate Poikilocytosis Cm Cells Sodium (136-145) mmol/L Potassium (3.5-5.1) mmol/L Chloride (98-107) mmol/L Carbon Dioxide (21-32) mmol/L BUN (7-18) mg/dL Creatinine (0.70-1.30) mg/dL Est Cr Clr Drug Dosing mL/min Estimated GFR (MDRD) Glucose (74-106) mg/dL Lactic Acid (0.4-2.0) mmol/L Calcium (8.5-10.1) mg/dL Total Bilirubin 2.0 H (0.2-1.0) mg/dL Direct Bilirubin 0.83 H (0.00-0.20) mg/dL AST 106 H (15-37) U/L ALT 61 (16-63) U/L Alkaline Phosphatase 94 (46-116) U/L NT-Pro-B Natriuret Pep (<=125) pg/mL Total Protein 6.9 (6.4-8.2) g/dL Albumin 2.9 L (3.4-5.0) g/dL Globulin 4.0 Albumin/Globulin Ratio 0.73 Urine Color (YELLOW) Urine Appearance (CLEAR) Urine pH (5.0-8.0) Ur Specific [place] Urine Protein (NEGATIVE) mg/dL Urine Glucose (UA) (NEGATIVE) mg/dL Urine Ketones (NEGATIVE) mg/dL Urine Occult Blood (NEGATIVE) Urine Nitrite (NEGATIVE) Urine Bilirubin (NEGATIVE) Urine Urobilinogen (0.2) EU/dL Ur Leukocyte Esterase (NEGATIVE) Urine RBC (NOT SEEN) /HPF Urine WBC (NOT SEEN) /HPF Ur Squamous Epith Cells (NEGATIVE) /HPF Ur Renal Epithelial Cell (NEGATIVE) /HPF Urine Bacteria (NEGATIVE) /HPF Urine Mucus (NEGATIVE) /LPF Urine Opiates Screen (NEAGTIVE) Ur Buprenorphine Scrn (NEGATIVE) Ur Oxycodone Screen (NEGATIVE) Urine Methadone Screen (NEGATIVE) Ur Barbiturates Screen (NEGATIVE) Ur Tricyclics Screen (NEGATIVE) Ur Amphetamine Screen (NEGATIVE) U Methamphetamines Scrn (NEGATIVE) Urine MDMA Screen (NEGATIVE) U Benzodiazepines Scrn (NEGATIVE) U Cocaine Metab Screen (NEGATIVE) U Marijuana (THC) Screen (NEGATIVE) Med Orders - Current: Current Medications Acetaminophen (Tylenol) 650 mg PO Q4H PRN PRN Reason: Pain (Mild 1-3)/fever Albuterol/Ipratropium (Duoneb 3.0-0.5 Mg/3 Ml) 3 ml NEB Q4HRRT [facility] Last Admin: 10/21/17 07:20 Dose: 3 ml Famotidine (Pepcid) 150 mg PO DAILY [facility] Last Admin: 10/21/17 08:07 Dose: 150 mg Fluticasone Propionate (Flonase) 0 gm JAMAAL BID [facility] Last Admin: 10/21/17 08:04 Dose: 1 spray Furosemide (Lasix) 40 mg PO DAILY [facility] Last Admin: 10/21/17 08:08 Dose: 40 mg Lactated Ringer's (Ringers, Lactated) 1,000 mls @ 100 mls/hr IV ASDIRECTED [facility] Last Admin: 10/21/17 05:12 Dose: 100 mls/hr Lisinopril (Prinivil) 30 mg PO DAILY [facility] Last Admin: 10/21/17 08:07 Dose: 30 mg Loratadine (Claritin) 10 mg PO DAILY PRN PRN Reason: Allergies Lorazepam (Ativan) 0.5 mg PO QID PRN PRN Reason: Anxiety Metoprolol Succinate (Toprol Xl) 12.5 mg PO DAILY [facility] Last Admin: 10/21/17 08:08 Dose: 12.5 mg Nystatin (Nystatin Crm) 0 gm TOP BID [facility] Last Admin: 10/21/17 08:05 Dose: 1 applic Ondansetron HCl (Zofran Odt) 4 mg PO Q6H PRN PRN Reason: nausea, able to take PO Oseltamivir Phosphate (Tamiflu) 75 mg PO BID [facility] Last Admin: 10/21/17 08:07 Dose: 75 mg Ropinirole HCl (Requip) 0.5 mg PO BEDTIME [facility] Last Admin: 10/21/17 03:39 Dose: Not Given Sodium Chloride (Saline Flush) 10 ml FLUSH ASDIRECTED PRN PRN Reason: Keep Vein Open Tramadol HCl (Ultram) 50 - 100 mg PO Q4H PRN PRN Reason: Pain Discontinued Medications Iopamidol (Isovue-300 (61%)) 100 ml IVPUSH ONETIME ONE Stop: 10/20/17 18:03 Last Admin: 10/20/17 19:49 Dose: 100 ml - Exam Quality Assessment: Reports: Skin Breakdown General: Reports: Alert, Cooperative, No Acute Distress HEENT: Reports: Pupils Equal, Pupils Reactive Neck: Reports: Supple Lungs: Reports: Normal Respiratory Effort, Decreased Breath Sounds Cardiovascular: Reports: Regular Rate, Regular Rhythm GI/Abdominal Exam: Normal Bowel Sounds, Soft, Non-Tender Skin: Reports: Warm, Dry, Rash (Left groin) Neurological: Reports: Other (acute confusion) Psy/Mental Status: Reports: Alert *Q Meaningful Use (DIS) - VTE *Q VTE Criteria *Q: VTE Mechanical Contraindications *Q: At Risk for Falls - Stroke *Q Stroke Criteria *Q: - AMI *Q AMI Criteria *Q:
[2017-10-21] MEDS ORDERED: Lactulose Soln 10 GM/15 ML 30 ML UD Cup PO ONE (10:50)
== END 2017-10-21 14:05 | disposition short-term general hospital (02) ==
LOC: VM.ED 15:46 → VM.MS 17:32
PROVIDERS: ADMIT Nurse Practitioner Family; ATTEND Nurse Practitioner Family
DX: R41.0 Disorientation, unspecified (principal); J10.1 Influenza due to other identified influenza virus with other respiratory manifestations; R06.2 Wheezing; E86.0 Dehydration; N17.9 Acute kidney failure, unspecified; I27.20 Pulmonary hypertension, unspecified; I10 Essential (primary) hypertension; K76.6 Portal hypertension; E66.01 Morbid (severe) obesity due to excess calories; G47.33 Obstructive sleep apnea (adult) (pediatric); K70.30 Alcoholic cirrhosis of liver without ascites; M19.90 Unspecified osteoarthritis, unspecified site; F41.9 Anxiety disorder, unspecified; Z79.899 Other long term (current) drug therapy; Z79.51 Long term (current) use of inhaled steroids; Z96.649 Presence of unspecified artificial hip joint
CPT/HCPCS: 36415; 70450; 71260; 80048; 80076; 80305; 81001; 83605; 83735; 83880; 85025; 86140; 87040; 94640; 94760; 96360; 96361; 99217; 99220; 99284-GF; 99285; A9270-GY; G0378; J7120; Q9967

== ENCOUNTER 2021-10-19 10:05 | Day surgery (SDC) | payer MEDICARE, BC ==
[~2021-10-19 10:05] MED LIST: Lactated Ringers 1,000 ML IV SCH; Sodium Chloride 0.9% 10 ML Syringe FLUSH PRN
[2021-10-19] MEDS ORDERED: fentaNYL 100 MCG/2 ML SDV ONE (10:41)
[2021-10-19] MEDS ORDERED: Propofol 200 MG/20 ML SDV ONE ×3 (10:41→12:00)
[2021-10-19 12:44] VITALS: BP 128/59; PULSE 59
== END 2021-10-19 13:10 | disposition home or self-care (01) ==
LOC: VM.SDS 10:05
PROVIDERS: ATTEND Family Medicine
DX: Z12.11 Encounter for screening for malignant neoplasm of colon (principal); D12.3 Benign neoplasm of transverse colon; D12.8 Benign neoplasm of rectum; D12.4 Benign neoplasm of descending colon; I27.20 Pulmonary hypertension, unspecified; I11.0 Hypertensive heart disease with heart failure; I50.9 Heart failure, unspecified; G47.33 Obstructive sleep apnea (adult) (pediatric); E66.01 Morbid (severe) obesity due to excess calories; F41.9 Anxiety disorder, unspecified; G25.81 Restless legs syndrome; K21.9 Gastro-esophageal reflux disease without esophagitis; J45.909 Unspecified asthma, uncomplicated; K70.30 Alcoholic cirrhosis of liver without ascites; D69.6 Thrombocytopenia, unspecified; Z98.890 Other specified postprocedural states
CPT/HCPCS: 00811; 88305; J2704; J3010; J7120

== ENCOUNTER 2025-09-01 22:37 | Emergency (ER) | payer MEDICARE, BC ==
[2025-09-02 00:38] VITALS: BP 133/65; PULSE 81
== END 2025-09-02 00:05 | disposition home or self-care (01) ==
LOC: VM.ED 22:37
DX: S63.285A Dislocation of proximal interphalangeal joint of left ring finger, initial encounter (principal); S00.33XA Contusion of nose, initial encounter; I11.0 Hypertensive heart disease with heart failure; I50.9 Heart failure, unspecified; K21.9 Gastro-esophageal reflux disease without esophagitis; Z79.899 Other long term (current) drug therapy; W00.0XXA Fall on same level due to ice and snow, initial encounter; Y93.89 Activity, other specified
CPT/HCPCS: 26725; 73140-F3; 99283; 99283-25